=== PATIENT | female | born 1990 | race Caucasian/White ===

== ENCOUNTER 2016-12-31 14:03 | Emergency (ER) | payer OTHER, SELFPAY ==
[2016-12-31 14:14] VITALS: O2SAT 97
--- NOTE | 2016-12-31 15:01 | ERPHSYRPT ---
- History of Present Illness Time Seen by Provider: 12/31/16 14:44 Source: patient Exam Limitations: no limitations Patient Subjective Stated Complaint: Pt states "I was pulling weeds and I got poisen tania on my face, hands, and belly" Triage Nursing Assessment: Pt alert and oriented X 3, skin pwd pt ambulatory with an upright steady gait, able to speak clearly and in full sentences. Pt has red raised rash on face just under rt eye, two small patches on left hand, and small patch on rt abdomen. Physician History: 26-year-old white female who states that she is with a due date is January 07 (39 weeks estimated gestational age) patient arrives with complaint of a rash on her face on the right side of her face and inferior the right I also with a couple streaks on her abdomen after getting in the poison tania 2 days ago. She states that the rash is not improving after Benadryl. She tells me that she contacted her actuarial intern and he stated that she could go to the emergency room and get an injection of steroids, She denies any other complaints Past medical history is negative Past surgical history includes appendectomy Patient is as noted above Timing/Duration: day(s) (2 days) Severity: moderate Modifying Factors: Improves With: other (taking Benadryl) Associated Symptoms: No nausea, No vomiting, No abdominal pain, No shortness of breath, No heartburn, No diaphoresis, No cough, No chills, No chest pain, No fever, No headaches, No loss of appetite, No malaise, No rash, No syncope, No seizure, No weakness Allergies/Adverse Reactions: No Known Drug Allergies Allergy (Unverified 01/08/16 11:17) Home Medications: No Reportable Medications [No Reported Medications] 12/31/16 [History] Hx Tetanus, Diphtheria Vaccination/Date Given: Yes Hx Influenza Vaccination/Date Given: No Hx Pneumococcal Vaccination/Date Given: No Immunizations Up to Date: Yes - Review of Systems Constitutional: No Fever, No Chills Eyes: No Symptoms Ears, Nose, & Throat: No Symptoms Respiratory: No Cough, No Dyspnea Cardiac: No Chest Pain, No Edema, No Syncope Abdominal/Gastrointestinal: Other (patient is 39 weeks estimated gestational age), No Abdominal Pain, No Nausea, No Vomiting, No Diarrhea Genitourinary Symptoms: No Dysuria Musculoskeletal: No Back Pain, No Neck Pain Skin: Other (rash on right side of face states was exposed to poison tania) Neurological: No Dizziness, No Focal Weakness, No Sensory Changes Psychological: No Symptoms Endocrine: No Symptoms All Other Systems: Reviewed and Negative - Past Medical History Pertinent Past Medical History: No - Past Surgical History Past Surgical History: Yes Gastrointestinal: Appendectomy - Social History Smoking Status: Current every day smoker How long have you smoked: 10 years Exposure to second hand smoke: Yes Drug Use: none Patient Lives Alone: No - Female History Hx Last Menstrual Period: 04/06/2016 Expected Date of Delivery: 01/07/17 - Nursing Vital Signs Nursing Vital Signs: Initial Vital Signs Temperature 98.8 F 12/31/16 14:08 Pulse Rate 82 12/31/16 14:08 Respiratory Rate 18 12/31/16 14:08 Blood Pressure 130/65 12/31/16 14:08 O2 Sat by Pulse Oximetry 96 12/31/16 14:08 Pain Scale Pain Intensity 4 - Physical Exam General Appearance: no apparent distress, alert Eye Exam: PERRL/EOMI, eyes nml inspection Ears, Nose, Throat Exam: normal ENT inspection, TMs normal, pharynx normal, moist mucous membranes Neck Exam: normal inspection, non-tender, supple, full range of motion Respiratory Exam: normal breath sounds, lungs clear, No respiratory distress Cardiovascular Exam: regular rate/rhythm, normal heart sounds, normal peripheral pulses Gastrointestinal/Abdomen Exam: soft, normal bowel sounds, other (Gravid abdomen , nontender), No tenderness, No mass Back Exam: normal inspection, normal range of motion, No CVA tenderness, No vertebral tenderness Extremity Exam: normal inspection, normal range of motion, pelvis stable Neurologic Exam: alert, oriented x 3, cooperative, normal mood/affect, nml cerebellar function, nml station & gait, sensation nml, No motor deficits Skin Exam: other (raised erythematous rash on right zygomatic area and inferior to right infraorbital ridge also several small erythematous raised streaks on patients superior abdomen) SpO2 Interpretation: normal (97%) SpO2: 97 Oxygen Delivery: Room Air - Course Nursing assessment & vital signs reviewed: Yes Ordered Tests: Medication Summary Discontinued Medications Generic Name Dose Route Start Last Admin Trade Name Freq PRN Reason Stop Dose Admin Methylprednisolone Sodium Succinate 125 mg 12/31/16 15:04 Solu-Medrol 125 Mg IM 12/31/16 15:05 STAT ONE - Progress Progress: improved Progress Note: 12/31/16 15:00 I discussed the patient's case with Dr. nikky meadows the patient's GETTERING OPERATOR physician. He stated we could give patient Solu-Medrol 125 mg IM and send patient home with a Medrol Dosepak. Will go ahead and do so 12/31/16 15:15 the patient's heart tones are 120 - Departure Time of Disposition: 15:15 Departure Disposition: Home Clinical Impression: incidental 39 weeks EGA Contact dermatitis Qualifiers: Contact dermatitis type: unspecified Contact dermatitis trigger: unspecified trigger Qualified Code(s): L25.9 - Unspecified contact dermatitis, unspecified cause Condition: Fair Critical Care Time: No Referrals: SEMAJ JUAREZ [Primary Care Provider] - Additional Instructions: Return home. Medrol Dosepak as directed. Follow-up with Dr. Heller or your family doctor Return for acute distress or for severe symptoms
[2016-12-31] MEDS ORDERED: solu-MEDROL 125 MG IM ONE (15:04)
[2016-12-31] MEDS ORDERED: solu-MEDROL 125 MG ONE (15:17)
[2016-12-31 15:42] VITALS: BP 134/70; PULSE 84
== END 2016-12-31 15:42 | disposition home or self-care (01) ==
LOC: ED 14:03
DX: L25.9 Unspecified contact dermatitis, unspecified cause (principal); Z33.1 Pregnant state, incidental; Z3A.39 39 weeks gestation of pregnancy
CPT/HCPCS: 96372; 99284; J2930

== ENCOUNTER 2017-05-26 15:17 | Emergency (ER) | payer OTHER, SELFPAY ==
[2017-05-26] MEDS ORDERED: BENADRYL 50 MG/ML IV ONE (15:27)
[2017-05-26] MEDS ORDERED: BABY ASPIRIN 81 MG CHEW PO ONE (15:27)
[2017-05-26] MEDS ORDERED: Pepcid 20 MG VIAL IV ONE ×2 (15:28→15:54)
[2017-05-26] MEDS ORDERED: TORAdol 30 mg Injection IV ONE (15:28)
--- NOTE | 2017-05-26 15:48 | ERPHSYRPT ---
- History of Present Illness Time Seen by Provider: 05/26/17 15:19 Source: patient, family (mother) Patient Subjective Stated Complaint: chest tightness x 3 days with weakness and nausea present Triage Nursing Assessment: to er c/o tightness in left chest radiating to back pt states pain came on gradually. pt denies any vomiting. mild nausea present. pt p/w/d resp easy a@ox3 no sob noted bbs cta Physician History: CC: chest pain Hx: 26 y/o patient of [facility] Cesped[facility]. She reports intermittent chest flutters for a long time. She has had some chest pain in the center of her chest during the past week. Not short of breath. Normal LMP. She smokes and uses OCP. She has fam hx of CAD in her mother starting in 's. Father this week with CHF. She has been upset. No fever or chills. She feels weak and fatigue. Timing/Duration: day(s) (couple) Severity: moderate Allergies/Adverse Reactions: No Known Drug Allergies Allergy (Unverified 01/08/16 11:17) Home Medications: No Reportable Medications [No Reported Medications] 12/31/16 [History] Hx Tetanus, Diphtheria Vaccination/Date Given: Yes Hx Influenza Vaccination/Date Given: No Hx Pneumococcal Vaccination/Date Given: No - Review of Systems Constitutional: Malaise, Weakness, No Fever, No Chills Eyes: No Symptoms Ears, Nose, & Throat: No Symptoms Respiratory: No Cough, No Dyspnea Cardiac: Chest Pain, Palpitations, No Syncope Abdominal/Gastrointestinal: No Abdominal Pain, No Nausea, No Vomiting Skin: No Rash Neurological: No Headache Psychological: No Depression, No Suicidal Ideations All Other Systems: Reviewed and Negative - Past Medical History Pertinent Past Medical History: No - Past Surgical History Past Surgical History: Yes Gastrointestinal: Appendectomy - Social History Smoking Status: Current every day smoker How long have you smoked: 10 years Exposure to second hand smoke: Yes Drug Use: none Patient Lives Alone: No - Female History Hx Last Menstrual Period: 05/17/17 Hx Now: No - Nursing Vital Signs Nursing Vital Signs: Initial Vital Signs Temperature 97.8 F 05/26/17 15:17 Pulse Rate 76 05/26/17 15:17 Respiratory Rate 16 05/26/17 15:17 Blood Pressure 133/77 02/16/18 15:17 O2 Sat by Pulse Oximetry 98 05/26/17 15:17 Pain Scale Pain Intensity 6 - Physical Exam General Appearance: alert Eye Exam: PERRL/EOMI Ears, Nose, Throat Exam: normal ENT inspection, moist mucous membranes Neck Exam: normal inspection, non-tender, supple Respiratory Exam: normal breath sounds Cardiovascular Exam: regular rate/rhythm, No murmur Gastrointestinal/Abdomen Exam: soft, No tenderness, No distention, No guarding Back Exam: normal inspection, No CVA tenderness Extremity Exam: normal inspection, normal range of motion Neurologic Exam: alert, oriented x 3, cooperative, sensation nml, No motor deficits Skin Exam: warm, dry, No rash SpO2 Interpretation: normal SpO2: 98 Oxygen Delivery: Room Air - Course Nursing assessment & vital signs reviewed: Yes EKG Interpreted by Me: RATE (69), Sinus Rhythm, NORMAL AXIS, Right Bundle Branch Block (incomplete) - Radiology Exams cxr X-ray Interpretation: Teleradiologist Report (nonacute hyperinflated chest) Ordered Tests: Active Orders 24 hr Category Date Time Status Utilization Specialist STAT Care 05/26/17 15:27 Active EKG-ER Only STAT Care 05/26/17 15:27 Active IV Insertion STAT Care 05/26/17 15:27 Active CHEST 2 VIEWS (PA AND LAT) Stat Exams 05/26/17 15:27 Completed CBC W DIFF Stat Lab 05/26/17 15:45 Completed CMP Stat Lab 05/26/17 15:45 Completed D-DIMER QUANTITATION Stat Lab 05/26/17 15:45 Completed HCG QUALITATIVE,SERUM Stat Lab 05/26/17 15:45 Completed TROPONIN Q3H Lab 05/26/17 15:45 Completed TROPONIN Q3H Lab 05/26/17 18:30 Ordered TROPONIN Q3H Lab 05/26/17 21:30 Ordered TROPONIN Q3H Lab 05/27/17 00:30 Ordered TROPONIN Q3H Lab 05/27/17 03:30 Ordered Medication Summary Discontinued Medications Generic Name Dose Route Start Last Admin Trade Name Freq PRN Reason Stop Dose Admin Aspirin 81 mg 05/26/17 15:27 05/26/17 15:58 Baby Aspirin 81 Mg Chew PO 05/26/17 15:28 81 mg STAT ONE Administration Aspirin Confirm 05/26/17 15:54 Baby Aspirin 81 Mg Chew Administered 05/26/17 15:55 Dose 81 mg .ROUTE .STK-MED ONE Diphenhydramine HCl 25 mg 05/26/17 15:27 05/26/17 15:57 Benadryl 50 Mg/Ml IV 05/26/17 15:28 25 mg STAT ONE Administration Diphenhydramine HCl Confirm 05/26/17 15:54 Benadryl 50 Mg/Ml Administered 05/26/17 15:55 Dose 50 mg .ROUTE .STK-MED ONE Famotidine 20 mg 05/26/17 15:28 05/26/17 15:57 Pepcid 20 Mg Vial IV 05/26/17 15:29 20 mg STAT ONE Administration Famotidine Confirm 05/26/17 15:54 Pepcid 20 Mg Vial Administered 05/26/17 15:55 Dose 20 mg IV .STK-MED ONE Ketorolac Tromethamine 30 mg 05/26/17 15:28 05/26/17 15:57 Toradol 30 Mg Injection IV 05/26/17 15:29 30 mg STAT ONE Administration Ketorolac Tromethamine Confirm 05/26/17 15:54 Toradol 30 Mg Injection Administered 05/26/17 15:55 Dose 30 mg .ROUTE .STK-MED ONE Lab/Rad Data: Laboratory Result Diagrams 05/26/17 15:45 05/26/17 15:45 Laboratory Results 05/26/17 05/26/17 05/26/17 Range/Units 15:45 15:45 15:45 WBC (4.0-10.5) K/mm3 RBC (4.1-5.4) M/mm3 Hgb (12.0-16.0) gm/dl Hct (35-47) % MCV (78-100) fl MCH (26-32) pg MCHC (32-36) g/dl RDW (11.5-14.0) % Plt Count (150-450) K/mm3 MPV (6-9.5) fl Gran % (36.0-66.0) % Lymphocytes % (24.0-44.0) % Monocytes % (0.0-12.0) % Eosinophils % (0.00-5.0) % Basophils % (0.0-0.4) % Basophils # (0-0.4) D-Dimer 349.38 (0-500) ng/mL Sodium (136-145) mEq/L Potassium (3.5-5.1) mEq/L Chloride (98-107) mEq/L Carbon Dioxide (21-32) mEq/L Anion Gap (5-15) MEQ/L BUN (9-20) mg/dL Creatinine (0.55-1.30) mg/dl Estimated GFR ML/MIN Glucose (70-110) MG/DL Calcium (8.5-10.1) mg/dL Total Bilirubin (0.2-1.0) mg/dL AST (15-37) U/L ALT (12-78) U/L Alkaline Phosphatase (46-116) U/L Troponin I < 0.017 (0.000-0.056) ng/ml Serum Total Protein (6.4-8.2) gm/dL Albumin (3.4-5.0) g/dL Serum , Qual NEGATIVE (Negative) 05/26/17 05/26/17 Range/Units 15:45 15:45 WBC 6.4 (4.0-10.5) K/mm3 RBC 4.26 (4.1-5.4) M/mm3 Hgb 12.6 (12.0-16.0) gm/dl Hct 39.1 (35-47) % MCV 91.8 (78-100) fl MCH 29.6 (26-32) pg MCHC 32.2 (32-36) g/dl RDW 13.9 (11.5-14.0) % Plt Count 311 (150-450) K/mm3 MPV 10.1 H (6-9.5) fl Gran % 54.9 (36.0-66.0) % Lymphocytes % 33.5 (24.0-44.0) % Monocytes % 9.1 (0.0-12.0) % Eosinophils % 2.2 (0.00-5.0) % Basophils % 0.3 (0.0-0.4) % Basophils # 0.02 (0-0.4) D-Dimer (0-500) ng/mL Sodium 140 (136-145) mEq/L Potassium 3.9 (3.5-5.1) mEq/L Chloride 104 (98-107) mEq/L Carbon Dioxide 25.8 (21-32) mEq/L Anion Gap 14.0 (5-15) MEQ/L BUN 17 (9-20) mg/dL Creatinine 0.76 (0.55-1.30) mg/dl Estimated GFR > 60 ML/MIN Glucose 85 (70-110) MG/DL Calcium 8.9 (8.5-10.1) mg/dL Total Bilirubin 0.20 (0.2-1.0) mg/dL AST 22 (15-37) U/L ALT 27 (12-78) U/L Alkaline Phosphatase 46 (46-116) U/L Troponin I (0.000-0.056) ng/ml Serum Total Protein 7.9 (6.4-8.2) gm/dL Albumin 3.9 (3.4-5.0) g/dL Serum , Qual (Negative) - Progress Progress: improved (pain free and wants to go home) Progress Note: 05/26/17 16:58 Tests reassuring. She needs to quit smoking and she needs to follow up for echo. She is bottle feeding her 4 month old infant. Counseled pt/family regarding: lab results, diagnosis, need for follow-up, rad results, smoking cessation - Departure Time of Disposition: 16:59 Departure Disposition: Home Clinical Impression: Chest pain Condition: Stable Critical Care Time: No Referrals: SEMAJ CESPEDES [Primary Care Provider] - Instructions: Chest Pain (DC), Quitting Smoking Additional Instructions: Stop smoking. Follow up with CAMIL[facility] Cespedes to arrange echocardiogram. Return for problems or concerns. Try pepcid or ibuprofen as needed.
[2017-05-26] MEDS ORDERED: TORAdol 30 mg Injection ONE (15:54)
[2017-05-26] MEDS ORDERED: BENADRYL 50 MG/ML ONE (15:54)
[2017-05-26] MEDS ORDERED: BABY ASPIRIN 81 MG CHEW ONE (15:54)
--- NOTE | 2017-05-26 15:56 | XRAY ---
Indication: Chest pain. Comparison: None PA/lateral chest hyperinflated and clear. Heart and mediastinal structures within normal limits. Bony thorax intact with minimal spinal degenerative changes. Impression: Nonacute hyperinflated chest.
[2017-05-26 15:59] LABS: BASOPHIL % 0.3 % (0.0-0.4); Basophil (Absolute #) 0.02 (0-0.4); Eosinophil % 2.2 % (0.00-5.0); Eosinophil (Absolute #) 0.14 (0-0.5); Granulocytes % 54.9 % (36.0-66.0); Hematocrit 39.1 % (35-47); Hemoglobin 12.6 gm/dl (12.0-16.0); Lymphocyte (Absolute #) 2.14 (1.0-4.6); Lymphocytes % 33.5 % (24.0-44.0); Mean Cell Volume 91.8 fl (78-100); Mean Corpuscular Hemoglobin 29.6 pg (26-32); Mean Corpuscular Hgb Concent. 32.2 g/dl (32-36); Mean Platelet Volume 10.1 fl (6-9.5); Monocyte (Absolute #) 0.58 (0.0-1.3); Monocytes % 9.1 % (0.0-12.0); Platelet Count 311 K/mm3 (150-450); Red Blood Count 4.26 M/mm3 (4.1-5.4); Red Cell Distribution Width 13.9 % (11.5-14.0); White Blood Count 6.4 K/mm3 (4.0-10.5)
[2017-05-26 16:27] LABS: ALBUMIN 3.9 g/dL (3.4-5.0); ALKALINE PHOSPHATASE 46 U/L (46-116); BLOOD UREA NITROGEN 17 mg/dL (9-20); CHLORIDE 104 mEq/L (98-107); Calcium 8.9 mg/dL (8.5-10.1); Carbon Dioxide 25.8 mEq/L (21-32); Creatinine 1 0.76 mg/dl (0.55-1.30); EST GLOMERULAR FILTRATION RATE > 60 ML/MIN; Glucose 85 MG/DL (70-110); Potassium 3.9 mEq/L (3.5-5.1); SGOT/AST 22 U/L (15-37); SGPT/ALT 27 U/L (12-78); SODIUM 140 mEq/L (136-145); Total Protein 7.9 gm/dL (6.4-8.2)
[2017-05-26 17:14] VITALS: BP 113/76; PULSE 58; O2SAT 100
== END 2017-05-26 17:15 | disposition home or self-care (01) ==
LOC: ED 15:17
DX: R07.9 Chest pain, unspecified (principal); Z82.49 Family history of ischemic heart disease and other diseases of the circulatory system; I45.10 Unspecified right bundle-branch block
CPT/HCPCS: 36000; 36415; 71046; 80053; 84484; 84703; 85025; 85379; 93005; 93041; 96374; 96375; 99284; J1200; J1885; A9270-GY

== ENCOUNTER 2018-10-16 09:09 | Emergency (ER) | payer MEDICAID, OTHER ==
[2018-10-16 09:36] VITALS: O2SAT 98
[2018-10-16] MEDS ORDERED: solu-MEDROL 125 MG IM ONE (10:02)
--- NOTE | 2018-10-16 10:08 | ERPHSYRPT ---
- History of Present Illness Time Seen by Provider: 10/16/18 09:58 Source: patient Exam Limitations: no limitations Patient Subjective Stated Complaint: her for swelling to right eye today, she states she woke up with morning this way,. she was outside 2 days ago [employer], Triage Nursing Assessment: pt walked in, resp easy, skin w/d/p. 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 She denies any vision changes she's not having a discharge from her eye. Past medical history is negative Past surgical history is appendectomy Timing/Duration: today Severity: moderate Modifying Factors: Improves With: other (working in a [employer] garden 2 days ago) Associated Symptoms: rash (edema and mild erythema right periorbital area), No nausea, No vomiting, No abdominal pain, No shortness of breath, No heartburn, No diaphoresis, No cough, No chills, No chest pain, No fever, No headaches, No loss of appetite, No malaise, No syncope, No seizure, No weakness Allergies/Adverse Reactions: No Known Drug Allergies Allergy (Verified 10/16/18 09:36) Home Medications: No Reportable Medications [No Reported Medications] 12/31/16 [History] Hx Tetanus, Diphtheria Vaccination/Date Given: No Hx Influenza Vaccination/Date Given: No Hx Pneumococcal Vaccination/Date Given: No Immunizations Up to Date: Yes - Review of Systems Constitutional: No Fever, No Chills Eyes: Other (edema right periorbital area erythema right periorbital area), No Discharge, No Eye Pain, No Vision Changes Ears, Nose, & Throat: No Symptoms Respiratory: No Cough, No Dyspnea Cardiac: No Chest Pain, No Edema, No Syncope Abdominal/Gastrointestinal: No Symptoms Genitourinary Symptoms: No Dysuria Musculoskeletal: No Back Pain, No Neck Pain Skin: Rash (edema mild erythema right periorbital area) Neurological: No Symptoms Psychological: No Symptoms Endocrine: No Symptoms All Other Systems: Reviewed and Negative - Past Medical History Pertinent Past Medical History: No - Past Surgical History Past Surgical History: Yes Gastrointestinal: Appendectomy - Social History Smoking Status: Current every day smoker How long have you smoked: 10 years Exposure to second hand smoke: Yes Drug Use: none Patient Lives Alone: No - Female History Hx Last Menstrual Period: 2 weeks ago Hx Now: No - Nursing Vital Signs Nursing Vital Signs: Initial Vital Signs Temperature 97.0 F 10/16/18 09:32 Pulse Rate 65 10/16/18 09:32 Respiratory Rate 16 10/16/18 09:32 Blood Pressure 120/66 10/16/18 09:32 O2 Sat by Pulse Oximetry 98 10/16/18 09:32 Pain Scale Pain Intensity 0 - Physical Exam General Appearance: no apparent distress, alert Eye Exam: PERRL/EOMI, other (thank you he and fundi unremarkablesclera are white no conjunctivitis, mild edema right periorbital area slight erythema right. Orbital area and eyelids) Ears, Nose, Throat Exam: normal ENT inspection, TMs normal, pharynx normal, moist mucous membranes Neck Exam: normal inspection, non-tender, supple, full range of motion Respiratory Exam: normal breath sounds, lungs clear, No respiratory distress Cardiovascular Exam: regular rate/rhythm, normal heart sounds, normal peripheral pulses, capillary refill <2 sec Gastrointestinal/Abdomen Exam: soft, normal bowel sounds, No tenderness, No mass Back Exam: normal inspection, normal range of motion, No CVA tenderness, No vertebral tenderness Extremity Exam: normal inspection, normal range of motion, pelvis stable Neurologic Exam: alert, oriented x 3, cooperative, livestock farmers II-XII nml as tested, normal mood/affect, nml cerebellar function, nml station & gait, sensation nml, No motor deficits Skin Exam: normal color, warm, dry, No rash Lymphatic Exam: No adenopathy SpO2 Interpretation: normal (98%) SpO2: 98 - Course Nursing assessment & vital signs reviewed: Yes Ordered Tests: Active Orders 24 hr Category Date Time Status Visual Acuity STAT Care 10/16/18 10:01 Active Medication Summary Discontinued Medications Generic Name Dose Route Start Last Admin Trade Name Freq PRN Reason Stop Dose Admin Methylprednisolone Sodium Succinate 125 mg 10/16/18 10:02 Solu-Medrol 125 Mg IM 10/16/18 10:03 STAT ONE - Progress Progress: improved Progress Note: 10/16/18 10:05 This is a 27-year-old white female previously healthy who states that she is working in her garden 2 days ago she wakes up this morning with some mild erythema to the right. Orbital area she has some slight edema she states that she was working in her garden recently and believes that she got into contact with poison tania. Patient's eye examination eyes PERRLA EOMI fundi are are unremarkable sclera white conjunctiva are not inflamed there are no foreign bodies in her eyes Vision is 20/30 in each eye 20/20 in both eyes. Patient with no eye irritation. Will go ahead and give patient Solu-Medrol 125 mg IM plan home with tapering dose of prednisone and Benadryl. - Departure Departure Disposition: Home Clinical Impression: Contact dermatitis Qualifiers: Contact dermatitis type: unspecified Contact dermatitis trigger: non-food plants Qualified Code(s): L25.5 - Unspecified contact dermatitis due to plants, except food Condition: Fair Critical Care Time: No Referrals: SEMAJ JUAREZ [Primary Care Provider] - Additional Instructions: Return home. Tapering dose of prednisone. Benadryl 25-50 mg orally every 6 hours for 2-3 days. Followup with your family symptoms are worse, no better 48 hours, or persist longer than one week. Return for acute distress or for severe symptoms.
[2018-10-16] MEDS ORDERED: solu-MEDROL 125 MG ONE (10:14)
[2018-10-16 10:46] VITALS: BP 116/66; PULSE 72
== END 2018-10-16 10:50 | disposition home or self-care (01) ==
LOC: ED 09:09
DX: L25.5 Unspecified contact dermatitis due to plants, except food (principal)
CPT/HCPCS: 96372; 99284; J2930

== ENCOUNTER 2020-03-16 19:41 | Emergency (ER) | payer MEDICAID ==
[2020-03-16] MEDS ORDERED: TORAdol 30 mg Injection IM ONE (19:56)
[2020-03-16] MEDS ORDERED: TORAdol 30 mg Injection ONE (19:57)
--- NOTE | 2020-03-16 20:00 | ERPHSYRPT ---
- History of Present Illness Time Seen by Provider: 03/16/20 19:58 Source: patient Exam Limitations: no limitations Physician History: Patient is a 29-year-old female presents to our ED for evaluation of her left fingers. Patient was moving a couch off of a truck when she smashed her finger between the couch and the truck. Injury occurred approximately 2 hours prior to arrival. Patient became concerned with the bruising. Pain described as an ache that is localized. No radiation. Pain worse with movement and palpation. Pain improved with rest. No other injuries reported. Tetanus is not up-to-date. Patient is otherwise healthy. She denies wrist pain elbow pain shoulder pain. Patient ambulatory without any difficulty. She voices no other complaints or concerns at this time. Occurred: just prior to arrival Quality: constant Severity of Pain-Max: moderate Severity of Pain-Current: mild Extremities Pain Location: 3rd finger: left, 4th finger: left, 5th finger: left Modifying Factors: Improves With: movement Associated Symptoms: none Allergies/Adverse Reactions: No Known Drug Allergies Allergy (Verified 03/16/20 19:54) Home Medications: No Reportable Medications [No Reported Medications] 12/31/16 [History] Hx Tetanus, Diphtheria Vaccination/Date Given: No Hx Influenza Vaccination/Date Given: No Hx Pneumococcal Vaccination/Date Given: No - Review of Systems Constitutional: No Symptoms, No Fever, No Chills Eyes: No Symptoms Ears, Nose, & Throat: No Symptoms Respiratory: No Symptoms, No Cough, No Dyspnea Cardiac: No Symptoms, No Chest Pain, No Edema, No Syncope Abdominal/Gastrointestinal: No Symptoms, No Abdominal Pain, No Nausea, No Vomiting, No Diarrhea Genitourinary Symptoms: No Symptoms, No Dysuria Musculoskeletal: No Symptoms, No Back Pain, No Neck Pain Skin: No Symptoms, No Rash Neurological: No Symptoms, No Dizziness, No Focal Weakness, No Sensory Changes Psychological: No Symptoms Endocrine: No Symptoms Hematologic/Lymphatic: No Symptoms Immunological/Allergic: No Symptoms All Other Systems: Reviewed and Negative - Past Medical History Pertinent Past Medical History: No - Past Surgical History Past Surgical History: Yes Gastrointestinal: Appendectomy - Social History Smoking Status: Current every day smoker How long have you smoked: 10 years Exposure to second hand smoke: Yes Drug Use: none Patient Lives Alone: No - Female History Hx Now: No - Nursing Vital Signs Nursing Vital Signs: Initial Vital Signs Temperature 98.3 F 03/16/20 19:55 Pulse Rate 78 03/16/20 19:55 Respiratory Rate 16 03/16/20 19:55 Blood Pressure 118/72 03/16/20 19:55 O2 Sat by Pulse Oximetry 100 03/16/20 19:55 Pain Scale Pain Intensity 6 - Physical Exam General Appearance: no apparent distress, alert Eyes, Ears, Nose, Throat Exam: moist mucous membranes Neck Exam: non-tender, supple Cardiovascular/Respiratory Exam: normal breath sounds, regular rate/rhythm, no respiratory distress, normal peripheral pulses, No tachycardia, No irregularly irregular Abdominal Exam: No guarding Back Exam: normal range of motion, No vertebral tenderness, No decreased range of motion Shoulder Exam: normal inspection, non-tender, no evidence of injury, normal ROM Elbow/Forearm Exam: normal inspection, non-tender, no evidence of injury, normal ROM Wrist Exam: normal inspection, non-tender, no evidence of injury, normal ROM Hand Exam: normal inspection, normal ROM, soft tissue tenderness (There is some bruising to the left third fourth and fifth digit. However patient is moving her digits freely with minimal discomfort.), No non-tender, No asymmetry, No nail injury (Subungual hematoma) Neuro/Tendon Exam: normal sensation, normal motor functions Mental Status Exam: alert, oriented x 3, cooperative Skin Exam: normal color, warm, dry SpO2 Interpretation: normal O2 Delivery: Room Air - Course Nursing assessment & vital signs reviewed: Yes - Radiology Exams Hand X-ray Interpretation: Interpreted by me (No fracture or dislocation.) Ordered Tests: Active Orders 24 hr Category Date Time Status HAND (MINIMUM 3 VIEWS) Stat Exams 03/16/20 19:54 Ordered Medication Summary Discontinued Medications Generic Name Dose Route Start Last Admin Trade Name Freq PRN Reason Stop Dose Admin Diphtheria/Tetanus/Acell Pertussis 0.5 ml 03/16/20 20:02 Adacel Vial IM 03/16/20 20:03 .ONCE ONE Ketorolac Tromethamine 30 mg 03/16/20 19:56 03/16/20 20:00 Toradol 30 Mg Injection IM 03/16/20 19:57 30 mg STAT ONE Administration Ketorolac Tromethamine Confirm 03/16/20 19:57 Toradol 30 Mg Injection Administered 03/16/20 19:58 Dose 30 mg .ROUTE .STK-MED ONE - Progress Progress: improved Progress Note: 03/16/20 20:01 Patient reassessed. Pain improved. Patient received Toradol IM for pain control. X-ray negative for fracture dislocation. No indication for further work-up at this time. Will discharge home. Patient agrees to follow-up with a primary care doctor within 48 hours for reevaluation. - Departure Departure Disposition: Home Clinical Impression: Finger contusion Condition: Stable Critical Care Time: No Referrals: SEMAJ JUAREZ [Primary Care Provider] - Additional Instructions: Discharge/Care Plan TAMRA KNOWLES was seen on 03/16/20 in the Emergency Room. The patient was counseled regarding Diagnosis,Lab results, Imaging studies, need for follow up and when to return to the Emergency Room. Prescriptions given: Discharge Note I have spoken with the patient and/or caregivers. I have explained the patient's condition, diagnosis and treatment plan based on the information available to me at this time. I have answered the patient's and/or caregiver's questions and addressed any concerns. The patient and/or caregivers have as good understanding of the patient's diagnosis, condition and treatment plan as can be expected at this point. The vital signs have been stable. The patient's condition is stable and appropriate for discharge from the emergency department. The patient will pursue further outpatient evaluation with the primary care physician or other designated or consulting physician as outlined in the discharge instructions. The patient and/or caregivers are agreeable to this plan of care and follow-up instructions have been explained in detail. The patient and/or caregivers have received these instruction. The patient/and or caregivers are aware that any significant change in condition or worsening of symptoms should prompt an immediate return to this or the closest emergency department or call 911.
[2020-03-16] MEDS ORDERED: Adacel Vial IM ONE ×2 (20:02→20:53)
[2020-03-16 20:58] VITALS: BP 123/72; PULSE 72; O2SAT 99
--- NOTE | 2020-03-17 08:58 | XRAY ---
Indication: Pain following injury. Comparison: None 3 view left hand obtained. No bony, articular, or soft tissue abnormalities.
== END 2020-03-16 21:04 | disposition home or self-care (01) ==
LOC: ED 19:41
DX: S60.032A Contusion of left middle finger without damage to nail, initial encounter (principal); S60.042A Contusion of left ring finger without damage to nail, initial encounter; S60.022A Contusion of left index finger without damage to nail, initial encounter; W23.0XXA Caught, crushed, jammed, or pinched between moving objects, initial encounter; Y93.89 Activity, other specified; Y92.89 Other specified places as the place of occurrence of the external cause; M79.645 Pain in left finger(s)
CPT/HCPCS: 73130; 90471; 90715; 96372; 99284; J1885